=== PATIENT | male | born 1955 | race Caucasian/White ===

== ENCOUNTER 2019-05-13 23:00 | Emergency (ER) | payer OTHER ==
[~2019-05-13] VITALS: Ht 185.4 cm; Wt 83.9 kg
[~2019-05-13 23:00] MED LIST: ALD50 PO; HYDROXYZINE PAM25 MG PO; IND20 PO; LAC30L PO; PRILOSEC20 MG PO; PROPRANOLOL HCL10 MG PO
[2019-05-14 00:57] VITALS: BP 102/57
== END 2019-05-14 00:57 | disposition home or self-care (01) ==
LOC: ED 23:00
DX: G89.18 Other acute postprocedural pain (principal); R33.9 Retention of urine, unspecified; F10.10 Alcohol abuse, uncomplicated; Z98.890 Other specified postprocedural states
CPT/HCPCS: J1885